=== PATIENT | female | born 1945 | race Caucasian/White ===

== ENCOUNTER 2022-09-21 08:20 | Day surgery (SDC) | payer MEDICARE, OTHER ==
[~2022-09-21 08:20] MED LIST: CYCLOPENTOLATE 1% OPHTH DROPS 2 ML ONE; KETOROLAC 0.45% OPHTH DROPS ONE; PHENYLEPHRINE 2.5% OPHTH 2 ML DROPS ONE; PROPARACAINE 0.5% OPHTH DROPS 15 ML ONE
[2022-09-21] MEDS ORDERED: LACTATED RINGERS 1,000 ML IV ONE ×2 (08:25→10:07)
--- NOTE | 2022-09-21 09:13 | ANESTHESIA ---
Pre-Anesthesia VS, & Labs - Diagnosis right eye senile combined cataract - Procedure right eye cataract extraction with IOL implant Vital Signs: Temp Pulse Resp BP Pulse Ox O2 Flow Rate 37.2 C 122 H 18 114/69 97 09/21/22 08:25 09/21/22 08:25 09/21/22 08:25 09/21/22 08:25 09/21/22 08:25 Height: 5 ft 3 in Weight (kg): 49 kg Body Mass Index: 19.1 BMI Classification: Normal - NPO >8 hours - Is Patient ?: No Home Medications and Allergies Home Medications: Ambulatory Orders Dicyclomine [Bentyl] 20 mg PO QID PRN 09/20/22 Penicillin V Potassium 1 tab PO TID 09/20/22 traMADol [Ultram] 25 mg PO DAILY PRN 09/20/22 Dicyclomine [Bentyl] 20 mg PO QID PRN 09/20/22 Penicillin V Potassium 1 tab PO TID 09/20/22 traMADol [Ultram] 25 mg PO DAILY PRN 09/20/22 Allergies/Adverse Reactions: Allergies Allergy/AdvReac Type Severity Reaction Status Date / Time adhesive tape AdvReac Unknown Verified 09/20/22 14:01 Anes History & Medical History - Anesthetic History Anesthesia Complications: reports: No previous complications - Medical History Cardiovascular: reports: None Pulmonary: reports: None Gastrointestinal: reports: Other (IBS) Urinary: reports: None Neuro: reports: None Musculoskeletal: reports: None Endocrine/Autoimmune: reports: None Blood Disorders: reports: None Skin: reports: Eczema Smoking Status: Former smoker Psychosocial: reports: No issues indicated 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 will require awake FOB intubation if airway needs secured.) Consent for Procedure(s) Verified and Reviewed: Yes Code Status: Attempt Resuscitation ASA classification: 2-Mild systemic disease Is this case an emergency?: No
[2022-09-21] MEDS ORDERED: MIDAZOLAM 2 MG/2 ML VIAL ONE (09:22)
[2022-09-21] MEDS ORDERED: BRIMONIDINE 0.2% OPHTH DROPS 5 ML OPTH ONE (09:38)
[2022-09-21] MEDS ORDERED: EPINEPHrine 1 MG/ML AMP IR ONE (09:39)
[2022-09-21] MEDS ORDERED: BSS/LIDOCAINE/EPINEPHRINE 1 ML SYRINGE IO ONE (09:39)
[2022-09-21] MEDS ORDERED: TIMOLOL 0.5% OPHTH DROPS OPTH ONE (09:39)
[2022-09-21] MEDS ORDERED: TRIAMCIN/MOXIFLOX OPHTHALMIC 0.6 ML VIAL IO ONE ×2 (09:39→11:05)
[2022-09-21] MEDS ORDERED: VANCOMYCIN OPHTH (TOPICAL) 10 MG/ML SYRINGE TOP ONE (09:40)
[2022-09-21] MEDS ORDERED: PROPARACAINE 0.5% OPHTH DROPS 15 ML EACHEYE ONE (09:40)
--- NOTE | 2022-09-21 10:14 | OPERATIVE REPORT ---
Operative Report - Other Other Information/Narrative: Date of Surgery: 09/21/22 Preop Dx: Visually significant cataract right eye. This was the first cataract surgery. Postop Dx: Same Procedure: Phacoemulsification with posterior chamber intraocular lens implant right eye Surgeon: Dr. Deshaun Antunez Anesthesia: Monitored anesthesia care Complications: None Operative Indications: This is a 76-year-old F with progressive vision loss in the right eye due to 2-3+ nuclear sclerotic and 2-3+ cortical cataract. Best corrected visual acuity was 20/125 with glare to hand motion vision in the right eye. Indications for surgery were: - Overall decrease in vision - Difficulty reading - Difficulty seeing words, closed captions, or game scores on TV - Difficulty seeing street signs The patient was consented at length concerning the risks and benefits of cataract surgery after which the patient expressed a desire to proceed with surgery. Operative Procedure: The patient was taken into OR#3 and placed under monitored anesthesia care. A surgical time-out was conducted confirming correct patient, correct procedure, and correct surgical site. The patient was given topical anesthesia and then prepped and draped in the usual sterile fashion. The eye was entered at the 6 and 3 oclock positions. Intracameral Shugarcaine was injected into the anterior chamber followed by a dispersive viscoelastic. A continuous-tear curvilinear capsulorhexis was performed. The nucleus was hydrodissected and phacoemulsified. The cortex was evacuated using automated infusion and aspiration. A cohesive viscoelastic was injected into the capsular bag and a 20.5 diopter intraocular lens was inserted into the bag. Infusion and aspiration were used to evacuate the viscoelastic materials from the eye. The wounds were hydrated and the eye inflated to physiologic pressure using balanced salt solution. Approximately 0.25ml of a mixture of triamcinolone and moxifloxacin was injected trans-sclerally into the vitreous in the inferotemporal quadrant using a 30 gauge cannula. An additional 0.55ml of a mixture of triamcinolone and moxifloxacin was injected subconjunctivally in the superior quadrant for infection and inflammation prophylaxis. Wound integrity was checked with Weck-Heather sponges. The patient was taken from the operating room in good condition and given post-op instructions.
[2022-09-21 10:39] VITALS: BP 84/57
[2022-09-21] MEDS ORDERED: EPINEPHrine 1 MG/ML AMP ONE (11:05)
[2022-09-21] MEDS ORDERED: BRIMONIDINE 0.2% OPHTH DROPS 5 ML ONE (11:05)
[2022-09-21] MEDS ORDERED: TIMOLOL 0.5% OPHTH DROPS ONE (11:05)
[2022-09-21] MEDS ORDERED: BSS/LIDOCAINE/EPINEPHRINE 1 ML SYRINGE ONE (11:06)
[2022-09-21] MEDS ORDERED: VANCOMYCIN OPHTH (TOPICAL) 10 MG/ML SYRINGE ONE (11:06)
--- NOTE | 2022-09-21 17:13 | ANESTHESIA POST OP EVALUATION ---
Anesthesia Post Eval - Post Anesthesia Eval Vitals: Last Vital Signs Temp 36.6 C 09/21/22 10:30 Pulse 112 H 09/21/22 10:30 Resp 16 09/21/22 10:30 BP 84/57 L 09/21/22 10:30 Pulse Ox 98 09/21/22 10:30 O2 Flow Rate CV Function Including HR & BP: Stable Pain Control: Satisfactory Nausea & Vomiting: Negative Mental Status: Baseline Respiratory Status: Airway Patent Hydration Status: Satisfactory Anesthesia Complications: None
== END 2022-09-21 08:21 | disposition home or self-care (01) ==
LOC: SDS 08:20
PROVIDERS: ATTEND Ophthalmology
DX: H25.811 Combined forms of age-related cataract, right eye (principal); Z87.891 Personal history of nicotine dependence; F41.9 Anxiety disorder, unspecified
CPT/HCPCS: 66984; A9270; J3490; J7120

== ENCOUNTER 2022-11-02 08:29 | Day surgery (SDC) | payer MEDICARE, OTHER ==
--- NOTE | 2022-11-02 06:54 | ANESTHESIA ---
Pre-Anesthesia VS, & Labs - Diagnosis L senile combined cataract - Procedure Extraction L cataract w/IOL Height: 5 ft 3 in - NPO >8 hours - Is Patient ?: No - Lab Results Lab results reviewed: Yes Home Medications and Allergies Dicyclomine [Bentyl] 20 mg PO QID PRN 09/20/22 Penicillin V Potassium 1 tab PO TID 09/20/22 traMADol [Ultram] 25 mg PO DAILY PRN 09/20/22 Acetaminophen [Tylenol] 1 tab PO PRN PRN 09/21/22 Acetaminophen/Cod 300/30 [Tylenol #3] 1 tab PO PRN PRN 09/21/22 Cholecalciferol (Vitamin D3) [Vitamin D3] 1 cap PO DAILY 09/21/22 LORazepam [Ativan] 1 tab PO PRN PRN 09/21/22 Pentoxifylline 1 tab PO TID 09/21/22 Prochlorperazine [Compazine] 1 tab PO PRN PRN 09/21/22 Psyllium Husk [Psyllium Fiber] 1 cap PO DAILY 09/21/22 Spironolactone [Aldactone] 1 tab PO DAILY 09/21/22 Triamcinolone 0.1% Cream [Kenalog 0.1% Cream] 1 applic TOP PRN PRN 09/21/22 diphenhydrAMINE [Benadryl] 1 cap PO PRN PRN 09/21/22 hydrOXYzine HCL [Hydroxyzine HCl] 1 tab PO PRN PRN 09/21/22 Allergies/Adverse Reactions: Allergies Allergy/AdvReac Type Severity Reaction Status Date / Time adhesive tape AdvReac Unknown Verified 09/20/22 14:01 Anes History & Medical History - Anesthetic History Anesthesia Complications: reports: Difficult airway Family history of Anesthesia Complications: Denies Family history of Malignant Hyperthermia: Denies - Medical History Cardiovascular: reports: None Pulmonary: reports: None Gastrointestinal: reports: Other Urinary: reports: None Neuro: reports: None Musculoskeletal: reports: None Endocrine/Autoimmune: reports: None Blood Disorders: reports: None Skin: reports: Eczema Smoking Status: Former smoker - Surgical History Eyes Ears Nose Throat (EENT): reports: Cataracts Exam General: Alert, Oriented x3, Cooperative Dental: Other (unable to assess) Mouth Openin Fingerbreadth (FB) Neck Mobility: Limited Mallampati classification: IV Thyromental Distance: 4-6 cm Respiratory: Lungs clear Cardiovascular: Regular rate Neurological: Normal speech Mental/Cognitive Status: Alert/Oriented X3 Cognitive Status: Within normal limits Plan Anesthesia Type: MAC Consent for Procedure(s) Verified and Reviewed: Yes Code Status: Attempt Resuscitation ASA classification: 3-Severe systemic disease Is this case an emergency?: No
[2022-11-02] MEDS ORDERED: LACTATED RINGERS 1,000 ML IV ONE ×2 (08:33→09:59)
[2022-11-02] MEDS ORDERED: MIDAZOLAM 2 MG/2 ML VIAL ONE (09:15)
[2022-11-02] MEDS ORDERED: TIMOLOL 0.5% OPHTH DROPS ONE (09:27)
[2022-11-02] MEDS ORDERED: VANCOMYCIN OPHTH (TOPICAL) 10 MG/ML SYRINGE ONE (09:27)
[2022-11-02] MEDS ORDERED: BSS/LIDOCAINE/EPINEPHRINE 1 ML VIAL ONE ×2 (09:27→09:32)
[2022-11-02] MEDS ORDERED: TRIAMCIN/MOXIFLOX OPHTHALMIC 0.6 ML VIAL IO ONE ×2 (09:27→09:46)
[2022-11-02] MEDS ORDERED: EPINEPHrine 1 MG/ML AMP ONE (09:27)
[2022-11-02] MEDS ORDERED: BRIMONIDINE 0.2% OPHTH DROPS 5 ML ONE (09:27)
[2022-11-02] MEDS ORDERED: fentaNYL 100 MCG/2 ML VIAL ONE (09:43)
[2022-11-02] MEDS ORDERED: BRIMONIDINE 0.2% OPHTH DROPS 5 ML OPTH ONE (09:45)
[2022-11-02] MEDS ORDERED: EPINEPHrine 1 MG/ML AMP IR ONE (09:45)
[2022-11-02] MEDS ORDERED: BSS/LIDOCAINE/EPINEPHRINE 1 ML SYRINGE IO ONE (09:45)
[2022-11-02] MEDS ORDERED: TIMOLOL 0.5% OPHTH DROPS OPTH ONE (09:45)
[2022-11-02] MEDS ORDERED: PROPARACAINE 0.5% OPHTH DROPS 15 ML EACHEYE ONE (09:46)
[2022-11-02] MEDS ORDERED: VANCOMYCIN OPHTH (TOPICAL) 10 MG/ML SYRINGE TOP ONE (09:46)
--- NOTE | 2022-11-02 10:00 | ANESTHESIA POST OP EVALUATION ---
Anesthesia Post Eval - Post Anesthesia Eval Vitals: Last Vital Signs Temp 36.9 C 11/02/22 08:39 Pulse 79 11/02/22 08:39 Resp 16 11/02/22 08:39 BP 80/50 L 11/02/22 08:39 Pulse Ox 96 11/02/22 08:39 O2 Flow Rate CV Function Including HR & BP: Stable Pain Control: Satisfactory Nausea & Vomiting: Negative Mental Status: Baseline Respiratory Status: Airway Patent Hydration Status: Satisfactory Anesthesia Complications: None
--- NOTE | 2022-11-02 10:08 | OPERATIVE REPORT ---
Operative Report - Other Other Information/Narrative: Date of Surgery: 11/02/22 Preop Dx: Visually significant cataract left eye. Cataract surgery was performed in the right eye on . Postop Dx: Same Procedure: Phacoemulsification with posterior chamber intraocular lens implant left eye Surgeon: Dr. Deshaun Antunez Anesthesia: Monitored anesthesia care Complications: None Operative Indications: This is a 76-year-old F with progressive vision loss in the left eye due to 2-3+ nuclear sclerotic and 2-3+ cortical cataract. Best corrected visual acuity was 20/50 with glare to 20/250 vision in the left eye. Indications for surgery were: - Overall decrease in vision - Difficulty seeing words on a computer screen - Difficulty reading - Difficulty seeing words, closed captions, or game scores on TV The patient was consented at length concerning the risks and benefits of cataract surgery after which the patient expressed a desire to proceed with surgery. Operative Procedure: The patient was taken into OR#3 and placed under monitored anesthesia care. A surgical time-out was conducted confirming correct patient, correct procedure, and correct surgical site. The patient was given topical anesthesia and then prepped and draped in the usual sterile fashion. The eye was entered at the 6 and 3 oclock positions. Intracameral Shugarcaine was injected into the anterior chamber followed by a dispersive viscoelastic. A continuous-tear curvilinear capsulorhexis was performed. The nucleus was hydrodissected and phacoemulsified. The cortex was evacuated using automated infusion and aspiration. A cohesive viscoelastic was injected into the capsular bag and a 21.0 diopter intraocular lens was inserted into the bag. Infusion and aspiration were used to evacuate the viscoelastic materials from the eye. The wounds were hydrated and the eye inflated to physiologic pressure using balanced salt solution. Approximately 0.25ml of a mixture of triamcinolone and moxifloxacin was injected trans-sclerally into the vitreous in the inferotemporal quadrant using a 30 gauge cannula. An additional 0.25ml of a mixture of triamcinolone and moxifloxacin was injected subconjunctivally in the superior quadrant for infection and inflammation prophylaxis. Wound integrity was checked with Weck-Heather sponges. The patient was taken from the operating room in good condition and given post-op instructions.
[2022-11-02 10:15] VITALS: BP 86/59
== END 2022-11-02 08:30 | disposition home or self-care (01) ==
LOC: SDS 08:29
PROVIDERS: ATTEND Ophthalmology
DX: H25.812 Combined forms of age-related cataract, left eye (principal); Z98.41 Cataract extraction status, right eye; Z87.891 Personal history of nicotine dependence
CPT/HCPCS: 66984; A9270; J3490; J7120